=== PATIENT | female | born 1980 | race American Indian/Alaskan Native ===

== ENCOUNTER 2020-03-01 13:06 | Emergency (ER) | payer SELFPAY ==
[2020-03-01 13:15] VITALS: BP 152/76
[2020-03-01 14:29] LABS: Hematocrit 39.4 % (30.3-42.9); Hemoglobin 13.5 gm/dl (10.1-14.3); Mean Corpuscular HGB Conc 34 % (30-34); Mean Corpuscular Volume 90 fl (79-97); Platelet Count 302 K/mm3 (140-440); Red Blood Count 4.39 M/mm3 (3.65-5.03); Red Cell Distribution Width 13.8 % (13.2-15.2)
[2020-03-01 15:14] LABS: RBC Morphology Normal; Total Cells Counted 100
--- NOTE | 2020-03-01 23:43 | Emergency Department Report ---
ED Female HPI - General Chief complaint: Vaginal Bleeding Stated complaint: 4 WEEKS SPOTTING Source: patient Mode of arrival: Ambulatory Limitations: No Limitations - History of Present Illness Initial comments: 40-year-old female with emerge department complaining of spotting with bleed after having had a positive test a couple weeks ago. She reports having some vague cramping as well and symptoms have progressed the last couple days to a couple of blood clots. Reports no back pain no flank pain no hematuria no hematemesis no hematochezia no trauma MD Complaint: vaginal bleeding -: Gradual Location: suprapubic Radiation: suprapubic Severity: mild Quality: cramping Consistency: constant Improves with: none Worsens with: none Are you Now?: Yes Associated Symptoms: vaginal bleeding. denies: loss of appetite, hematuria, shortness of breath, syncope, weakness - Related Data Previous Rx's Medication Instructions Recorded Last Taken Type Sulfamethoxazole/Trimethoprim 1 each PO BID #20 tablet 06/28/13 Unknown Rx [Bactrim Ds] Cyclobenzaprine [Flexeril 10mg] 10 mg PO TID PRN #14 tablet 10/06/13 Unknown Rx traMADoL [Ultram] 50 mg PO Q4HR PRN #20 tablet 10/06/13 Unknown Rx Allergies Allergy/AdvReac Type Severity Reaction Status Date / Time No Known Allergies Allergy Verified 06/28/13 19:43 ED Review of Systems ROS: Stated complaint: 4 WEEKS SPOTTING Other details as noted in HPI Comment: All other systems reviewed and negative ED Past Medical Hx - Past Medical History Previous Medical History?: Yes Hx Arthritis: Yes Additional medical history: heart murmer - Surgical History Past Surgical History?: Yes - Social History Smoking Status: Never Smoker Substance Use Type: None - Medications Home Medications: Home Medications Medication Instructions Recorded Confirmed Last Taken Type Sulfamethoxazole/Trimethoprim 1 each PO BID #20 tablet 06/28/13 Unknown Rx [Bactrim Ds] Cyclobenzaprine [Flexeril 10mg] 10 mg PO TID PRN #14 tablet 10/06/13 Unknown Rx traMADoL [Ultram] 50 mg PO Q4HR PRN #20 tablet 10/06/13 Unknown Rx ED Physical Exam - General Limitations: No Limitations General appearance: alert, in no apparent distress - Head Head exam: Present: atraumatic, normocephalic - Eye Eye exam: Present: normal appearance, PERRL, EOMI Pupils: Present: normal accommodation - ENT ENT exam: Present: normal exam, mucous membranes moist, TM's normal bilaterally - Neck Neck exam: Present: normal inspection, full ROM - Respiratory Respiratory exam: Present: normal lung sounds bilaterally. Absent: respiratory distress, wheezes - Cardiovascular Cardiovascular Exam: Present: regular rate, normal rhythm. Absent: bradycardia, tachycardia, systolic murmur, diastolic murmur, rubs, gallop - GI/Abdominal GI/Abdominal exam: Present: soft, normal bowel sounds. Absent: tenderness, guarding - Extremities Exam Extremities exam: Present: normal inspection, normal capillary refill - Back Exam Back exam: Present: normal inspection. Absent: CVA tenderness (R), CVA tenderness (L) - Neurological Exam Neurological exam: Present: alert, oriented X3, CN II-XII intact, normal gait - Psychiatric Psychiatric exam: Present: normal affect, normal mood - Skin Skin exam: Present: warm, dry, intact, normal color. Absent: rash ED Course Vital Signs 03/01/20 13:12 Temperature 98.4 F Pulse Rate 68 Respiratory 19 Rate Blood Pressure 152/76 O2 Sat by Pulse 99 Oximetry ED Medical Decision Making - Lab Data Result diagrams: 03/01/20 13:49 - Radiology Data Radiology results: report reviewed Patient Name: YUAN KIRK Gender: Female Date of : 1980 Referring Provider: PATRICK BOWERS Organization: [facility] Accession Number: [id number] Requested Date: March 01, 2020 00:10 Report Status: Final Requested Procedure: 1 Procedure Description: US OB <= 14 weeks fetus Modality: US Findings Reporting MD: Davi Deras Dictation Time: March 02, 2020 02:23 Service Parts Driver: Not available Patient Services Assistant Date: Pelvic ultrasound INDICATION: Positive test, pelvic pain, moderate vaginal bleeding with passage of clots TECHNIQUE: Transabdominal COMPARISON: None FINDINGS: Uterus measures 8.3 x 3.8 x 4.8 cm. Endometrial stripe measures 11 mm. I do not see an intrauterine gestational sac. Slightly heterogenous appearance to the endometrial canal is noted could relate to bleeding. Right ovary measures 3.1 cm in length and shows a 2.2 cm simple cyst. Left ovary is not visualized. No free fluid is seen. IMPRESSION: I cannot confirm an anterior and . Possibly there has been spontaneous . Ectopic is not excluded by these findings but is not strongly suggested. Clinical correlation and follow-up are recommended. Signer Name: Davi Deras MD Signed: 03/02/2020 2:23 AM Workstation Name: [id number] - Medical Decision Making This patient presents with vaginal bleeding in the first trimester, differential diagnosis includes ectopic , IUP, month threatened/inevitable , along with a completed . Patient is HDS and without a history of coagulopathy or infectious symptoms. The ultrasound does reveal an IUP at 6 weeks with an elevated hCG quant Based on exam history and ED work-up patient presentation is not consistent with an ectopic , life-threatening coagulopathy, trauma, serious bacterial infection, central process or other emergency Critical care attestation.: If time is entered above; I have spent that time in minutes in the direct care of this critically ill patient, excluding procedure time. ED Disposition Clinical Impression: Vaginal bleeding affecting early Disposition: DC-01 TO HOME OR SELFCARE Is pt being admited?: No Does the pt Need Aspirin: No Condition: Stable Instructions: Threatened Miscarriage, Threatened Miscarriage, [id number], Activity Restriction During , Vaginal Bleeding During , First Trimester, [id number] Additional Instructions: yopur current HCG level is 475. Be sure cortez follow up to be re-evaluated [place] Referrals: [facility] [Provider Group] - 3-5 Days
--- NOTE | 2020-03-02 03:27 | Ultrasound Report ---
Pelvic ultrasound INDICATION: Positive test, pelvic pain, moderate vaginal bleeding with passage of clots TECHNIQUE: Transabdominal COMPARISON: None FINDINGS: Uterus measures 8.3 x 3.8 x 4.8 cm. Endometrial stripe measures 11 mm. I do not see an intr auterine gestational sac. Slightly heterogenous appearance to the endometrial canal is noted could re late to bleeding. Right ovary measures 3.1 cm in length and shows a 2.2 cm simple cyst. Left ovary is not visualized. No free fluid is seen. IMPRESSION: I cannot confirm an anterior and . Possibly there has been spontaneous . Ectopic is not excluded by these findings but is not strongly suggested. Clinical correlat ion and follow-up are recommended. Signer Name: Davi Deras MD Signed: 03/02/2020 3:23 AM Workstation Name: [id number]
== END 2020-03-02 04:16 | disposition home or self-care (01) ==
LOC: ED 13:06
DX: O20.8 Other hemorrhage in early pregnancy (principal); Z79.899 Other long term (current) drug therapy; Z3A.01 Less than 8 weeks gestation of pregnancy
CPT/HCPCS: 36415; 76801; 84702; 85007; 85025; 86900; 86901

== ENCOUNTER 2020-03-03 13:39 | Emergency (ER) | payer SELFPAY ==
--- NOTE | 2020-03-03 17:49 | Event Note ---
ED Screening Note Date of service: 03/03/20 Time: 17:49 ED Screening Note: 40-year-old -[place] female reports that she is 5 weeks and has been having vaginal bleeding and abdominal cramping for the last 2 days. Patient was seen here 2 days ago for the same complaint. It was noted the patient's hCG was less than 500. This initial assessment/diagnostic orders/clinical plan/treatment(s) is/are subject to change based on patients health status, clinical progression and re-assessment by fellow clinical providers in the ED. Further treatment and workup at subsequent clinical providers discretion. Patient/guardian urged not to elope from the ED as their condition may be serious if not clinically assessed and managed. Initial orders include:
[2020-03-03 21:22] LABS: Bilirubin,Urine NEG (Negative); Blood,Urine LG (Negative); Color,Urine Yellow (Yellow); Mucus,Urine FEW /HPF; Urobilinogen,Urine < 2.0 mg/dL (<2.0)
[2020-03-04 13:24] VITALS: BP 118/68
--- NOTE | 2020-03-04 13:52 | Emergency Department Report ---
ED General Adult HPI - General Chief complaint: Vaginal Bleeding Stated complaint: 5 WEEKS CRAMPING Source: patient Mode of arrival: Ambulatory Limitations: No Limitations - History of Present Illness Initial comments: 40-year-old -[place] female patient presents for recheck of her beta hCG levels today. Patient was seen here in the ED on 03/01/2020 for bleeding and mild abdominal pain during . She states she continues to have mild abdominal cramping and minimal bleeding, but denies any worsening of her symptoms, fever/chills/sweats, dysuria/hematuria/urinary frequency, vaginal discharge/dyspareunia, or other complaints or concerns. - Related Data Previous Rx's Medication Instructions Recorded Last Taken Type Sulfamethoxazole/Trimethoprim 1 each PO BID #20 tablet 06/28/13 Unknown Rx [Bactrim Ds] Cyclobenzaprine [Flexeril 10mg] 10 mg PO TID PRN #14 tablet 10/06/13 Unknown Rx traMADoL [Ultram] 50 mg PO Q4HR PRN #20 tablet 10/06/13 Unknown Rx Amoxicillin/Potassium Clav 1 each PO BID 3 Days #6 tablet 03/04/20 Unknown Rx [Augmentin 875-125 Tablet] Allergies Allergy/AdvReac Type Severity Reaction Status Date / Time No Known Allergies Allergy Verified 06/28/13 19:43 ED Review of Systems ROS: Stated complaint: 5 WEEKS CRAMPING Other details as noted in HPI Constitutional: denies: diaphoresis, fever Eyes: denies: vision change Respiratory: denies: cough, shortness of breath Cardiovascular: denies: chest pain Gastrointestinal: as per HPI. denies: nausea, vomiting, diarrhea, constipation Genitourinary: denies: urgency, dysuria, frequency, hematuria, discharge Skin: denies: lesions Hematological/Lymphatic: denies: swollen glands ED Past Medical Hx - Past Medical History Hx Arthritis: Yes Additional medical history: heart murmer - Surgical History Past Surgical History?: No - Social History Smoking Status: Never Smoker - Medications Home Medications: Home Medications Medication Instructions Recorded Confirmed Last Taken Type Sulfamethoxazole/Trimethoprim 1 each PO BID #20 tablet 06/28/13 Unknown Rx [Bactrim Ds] Cyclobenzaprine [Flexeril 10mg] 10 mg PO TID PRN #14 tablet 10/06/13 Unknown Rx traMADoL [Ultram] 50 mg PO Q4HR PRN #20 tablet 10/06/13 Unknown Rx Amoxicillin/Potassium Clav 1 each PO BID 3 Days #6 tablet 03/04/20 Unknown Rx [Augmentin 875-125 Tablet] ED Physical Exam - General Limitations: No Limitations General appearance: alert, in no apparent distress - Head Head exam: Present: atraumatic, normocephalic - Eye Eye exam: Absent: scleral icterus - Neck Neck exam: Present: normal inspection - Respiratory Respiratory exam: Absent: respiratory distress - Cardiovascular Cardiovascular Exam: Present: regular rate - GI/Abdominal GI/Abdominal exam: Present: soft, normal bowel sounds. Absent: distended, tenderness, guarding, rebound, rigid - Neurological Exam Neurological exam: Present: alert, oriented X3, normal gait - Psychiatric Psychiatric exam: Present: normal affect, normal mood - Skin Skin exam: Present: warm, dry, intact, normal color. Absent: rash ED Course Vital Signs 03/03/20 03/04/20 16:18 13:23 Temperature 98.7 F 98.0 F Pulse Rate 65 88 Respiratory 18 18 Rate Blood Pressure 149/79 118/68 O2 Sat by Pulse 100 100 Oximetry ED Medical Decision Making - Medical Decision Making 40-year-old -[place] female patient presents for recheck of her beta hCG levels today. Patient was seen here in the ED on 03/01/2020 for bleeding and mild abdominal pain during . She states she continues to have mild abdominal cramping and minimal bleeding, but denies any worsening of her symptoms, fever/chills/sweats, dysuria/hematuria/urinary frequency, vaginal discharge/dyspareunia, or other complaints or concerns. Ultrasound on 03/01/2020 showed 6-week IUP and a beta-hCG in the 400s. Beta-hCG today is in the 600s. UA shows 7 WBCs, however patient denies any UTI symptoms today. Augmentin given for 3 days. Urine culture ordered. Patient's vitals are normal. She is well-appearing and she is stable for discharge home. [facility] follow-up recommended within 1 week. Discussed strict return precautions in detail with patient who verbalizes understanding. Critical care attestation.: If time is entered above; I have spent that time in minutes in the direct care of this critically ill patient, excluding procedure time. ED Disposition Clinical Impression: Vaginal bleeding affecting early , UTI in Disposition: Z- MED SCREENING EXAM-LEFT Is pt being admited?: No Condition: Stable Instructions: Vaginal Bleeding During , First Trimester, and Urinary Tract Infection Prescriptions: Amoxicillin/Potassium Clav [Augmentin 875-125 Tablet] 1 each PO BID 3 Days #6 tablet Referrals: [facility] [Provider Group] - 3-5 Days
== END 2020-03-03 16:40 | disposition left against medical advice (07) ==
LOC: ED 13:39
DX: Z00.8 Encounter for other general examination (principal); Z53.21 Procedure and treatment not carried out due to patient leaving prior to being seen by health care provider
CPT/HCPCS: 36415; 81001; 84702